=== PATIENT | female | born 1985 | race Caucasian/White ===

== ENCOUNTER 2024-07-21 06:08 | Emergency (ER) | payer OTHER ==
[~2024-07-21] VITALS: Ht 172.7 cm; Wt 104.4 kg
[2024-07-21 07:18] LABS: BASOPHILS % (AUTO) 0.3 % (0-1); EOSINOPHILS # (AUTO) 0.1 X10'3 (0-0.9); EOSINOPHILS % (AUTO) 0.6 % (0-6); LYMPHOCYTES # (AUTO) 1.7 X10'3 (1.1-4.8); LYMPHOCYTES % (AUTO) 13.7 % (21-51); MEAN CORPUSCULAR HGB CONC 34.2 g/dL (33.0-36.5); MEAN CORPUSCULAR VOLUME 90.8 FL (78-98); MEAN PLATELET VOLUME 7.4 FL (7.4-10.4); MONOCYTES # (AUTO) 0.8 X10'3 (0-0.9); MONOCYTES % (AUTO) 6.1 % (2-12); NEUTROPHILS # (AUTO) 9.8 X10'3 (1.8-7.7); NEUTROPHILS % (AUTO) 79.3 % (42-75); PLATELET COUNT 484 X10'3 (140-440); RED BLOOD COUNT 4.52 X10'6 (4.20-5.60); WHITE BLOOD COUNT 12.4 X10'3 (4.5-11.0)
[2024-07-21] MEDS: metoclopramide 5 mg/ml inj IV ONE (07:20)
[2024-07-21] MEDS: HYDROmorphone inj. 0.5 MG/0.5 ML DISP.SYRIN IV ONE (07:20)
[2024-07-21] MEDS: ondansetron/PF 4mg/2ml inj IV ONE (07:20)
[2024-07-21] MEDS: normal saline 1000ml 1,000 ML IV ONE ×2 (07:21→10:38)
[2024-07-21 07:43] LABS: BILIRUBIN,URINE SMALL (Neg); CLARITY,URINE CLOUDY (Clear); COLOR,URINE YELLOW (Yellow); GLUCOSE, URINE NEGATIVE (Neg); KETONES,URINE TRACE mg/dl (Neg); LEUKOCYTE ESTERASE ,URINE NEGATIVE (Neg); NITRITES, URINE NEGATIVE (Neg); OCCULT BLOOD,URINE NEGATIVE (Neg); PROTEIN,URINE TRACE mg/dl (Neg); UROBILINOGEN,URINE 0.2 E.U/dL (0.2-1.0)
[2024-07-21 07:50] LABS: URINE HCG NEGATIVE (NEG)
[2024-07-21 07:54] LABS: SQUAMOUS EPITHELIAL CELL,UR MANY /LPF (FEW); UA COLLECTION TYPE NON-SPECIFIED
[2024-07-21 07:55] LABS: MUCUS STRANDS MODERATE /LPF (Neg)
[2024-07-21 07:56] LABS: BACTERIA,URINE 1+ /HPF (Neg); RBC,URINE 0-2 /HPF (0-2); WBC,URINE 0-4 /HPF (0-4)
[2024-07-21 08:02] LABS: ALANINE AMINOTRANSFERASE 20 U/L (12-78); ALBUMIN 4.1 G/DL (3.4-5.0); ALBUMIN/GLOBULIN RATIO 1.1 (1.1-1.5); ALKALINE PHOSPHATASE 109 IU/L (46-116); ANION GAP 10 (8-16); ASPARTATE AMINO TRANSFERASE 14 U/L (10-37); BILIRUBIN,TOTAL 0.4 MG/DL (0.1-1.0); BLOOD UREA NITROGEN 10 MG/DL (7-18); CALCIUM 9.3 MG/DL (8.5-10.1); CHLORIDE 97 MMOL/L (99-107); CREATININE 1.25 MG/DL (0.40-0.90); GLUCOSE 103 MG/DL (70-104); LIPASE 47 U/L (16-77); POTASSIUM 3.4 MMOL/L (3.5-5.1); SODIUM 135 MMOL/L (135-145); TOTAL CARBON DIOXIDE 27.9 MMOL/L (24-32); TOTAL PROTEIN 7.9 G/DL (6.4-8.2); eCRCL 61 ML/MIN; eGFR 48 ML/MIN
[2024-07-21] MEDS: HYDROmorphone inj. 0.5 MG/0.5 ML DISP.SYRIN IV PRN (08:09)
[2024-07-21] MEDS: potassium CL 10mEq/100ml bag 100 ML IV SCH (10:38)
[2024-07-21] MEDS: magnesium sulf-water 2g/50mL 50 ML IV ONE (10:48)
[2024-07-21 10:49] VITALS: TEMP 97.4
[2024-07-21] MEDS ORDERED: HYDR-3965 PO ×2 (13:22→13:51)
[2024-07-21] MEDS ORDERED: ONDA-243 PO (13:22)
[2024-07-21 14:04] VITALS: BP 156/89; PULSE 98; RESP 18; O2SAT 98
== END 2024-07-21 14:07 | disposition home or self-care (01) ==
LOC: ER 06:10
DX: R10.84 Generalized abdominal pain (principal); E66.3 Overweight; Z90.49 Acquired absence of other specified parts of digestive tract
CPT/HCPCS: 36415; 80053; 81001; 81025; 83690; 84702; 85025; 93005; 96365; 96366; 96375; 96376; 99285; J1171; J2405; J2765; J3480; J7030